=== PATIENT | female | born 1990 | race Caucasian/White ===

== ENCOUNTER 2018-08-15 17:57 | Outpatient (CLI) | payer MEDICAID ==
[~2018-08-15] VITALS: Ht 157.5 cm; Wt 79.3 kg
[2018-08-15 18:29] VITALS: Ht 157.5 cm; Wt 79.3 kg
[2018-08-15] MEDS ORDERED: ACETAMINOPHEN 325 MG TAB PO ONE (18:30)
[2018-08-15] MEDS ORDERED: PREN-93 PO (18:31)
--- NOTE | 2018-08-15 21:06 | TRIAGE ---
OB Triage Datetime Report Generated by CPN: 08/15/2018 21:06 Datetime: 08/15/2018 20:20 Stage of : OB Triage Labor Evaluation Frequency: Irritability Monitor Mode: External Duration (sec)2399: 20-30 Quality: Mild Pattern: Normal: <= 5 Contractions in 10 Minutes Resting Tone [place]: Relaxed Heart Rate FHR Baseline Rate: 150 Monitor Mode: External US FHR Baseline Changes: Return to Previous Baseline Variability: Moderate 6-25 bpm Accelerations: 15X15 Decelerations: None Datetime: 08/15/2018 20:00 Stage of : OB Triage Labor Evaluation Frequency: x1 with irritability Monitor Mode: External Duration (sec)2399: 20-50 Quality: Mild Pattern: Normal: <= 5 Contractions in 10 Minutes Resting Tone [place]: Relaxed Heart Rate FHR Baseline Rate: 150 (Annotations: then baseline change to 160BPM. Will continue to monitor.) Monitor Mode: External US Variability: Moderate 6-25 bpm Accelerations: 15X15 Decelerations: None Datetime: 08/15/2018 19:27 Stage of : OB Triage Temperature Route: Oral Pain Assessment Comments: Pt reports body aches, runny nose, cough, _ feeling warm Datetime: 08/15/2018 18:58 Stage of : OB Triage Maternal Assessment Level of Consciousness: Fully Conscious DTR's/Clonus: DTRs 1+ Headache: Denies Breath Sounds, Left: Clear and Equal Breath Sounds, Right: Clear and Equal Nausea/Vomiting: Denies RUQ Epigastric Pain: Denies Labor Evaluation Frequency: NONE Monitor Mode: External Resting Tone [place]: Relaxed Heart Rate FHR Baseline Rate: 145 Monitor Mode: External US Variability: Moderate 6-25 bpm Accelerations: 15X15 Decelerations: None Pain Assessment Pain Scale: 0 Pain Presence: None/Denies Pain Type: N/A Pain Goal: 3 Vaginal Exam Membrane Status: Intact Datetime: 08/15/2018 18:34 Stage of : OB Triage Datetime: 08/15/2018 18:26 EGA: 35.1 Datetime: 08/15/2018 18:12 Maternal Assessment Level of Consciousness: Fully Conscious DTR's/Clonus: DTRs 1+ Headache: Denies Blurred Vision: No Respiratory Effort: Unlabored Breath Sounds, Left: Clear and Equal Breath Sounds, Right: Clear and Equal Nausea/Vomiting: Denies RUQ Epigastric Pain: Denies Facial Edema: None Labor Evaluation Frequency: NONE Monitor Mode: External Resting Tone [place]: Relaxed Heart Rate FHR Baseline Rate: 145 Monitor Mode: External US Variability: Moderate 6-25 bpm Accelerations: 15X15 Decelerations: None Category: Category I Pain Assessment Pain Scale: 0 Pain Presence: None/Denies Pain Type: N/A Pain Goal: 3 Vaginal Exam Membrane Status: Intact Datetime: 08/15/2018 17:50 Assessment Type: Triage Maternal Assessment Level of Consciousness: Fully Conscious DTR's/Clonus: DTRs 2+; No Clonus Headache: Denies Blurred Vision: No Respiratory Effort: Unlabored; Regular Rhythm; Equal Expansion Breath Sounds, Left: Clear and Equal Breath Sounds, Right: Clear and Equal Nausea/Vomiting: Denies RUQ Epigastric Pain: Denies Lower Extremities Edema: None Degree: None Upper Extremities Edema: None Degree: None Facial Edema: None Fall Risk Assessment History of Falling: (0) No Secondary Diagnosis: (0) No Ambulatory Aid: (0) Bedrest/Nurse Assist IV Therapy: (0) No Gait: (0) Normal/Bedrest/Immobile Mental Status: (0) Oriented to Own Ability Fall Score: 0 Fall Risk Score Definition: No Risk: No action required Datetime: 08/15/2018 17:48 Time of Arrival: 08/15/2018 17:48 Arrived By: Ambulatory Arrived From: Home Chief Complaint: PT CAME IN C/O FLU LIKE S/S Movement: Present Contractions: Denies/Absent Rupture of Membranes: Denies Vaginal Bleeding: None Vaginal Discharge: Denies Recent Sexual Intercouse: Denies Abdominal Trauma: Not Applicable Patient Complaints: Other Additional Patient Complaints: NONE Time Provider Notified: 08/15/2018 18:00 Provider Notified: SANDRA Initial Plan: NST, BPP, TYLENOL PO
--- NOTE | 2018-08-15 23:01 | PN ---
Triage Information Date/Time 08/15/18 Reason for visit: fever , generalized myalgia,diarrhea , coughing Weeks of Gestation 35w1d /Para Diabetes: none Hypertention: none Objective Vital Signs Date Temp Pulse Resp B/P (MAP) Pulse Ox O2 O2 Flow FiO2 Time Delivery Rate 08/15/18 99.6 18:34 Heart Rate Comments 160's CAT I Contractions: None Results/Medications Results 24 hrs Laboratory Tests Test 08/15/18 18:23 Urine Color YELLOW Urine Clarity SLIGHTLY CLOUDY A Urine pH 7.0 Urine Specific [place] 1.012 Urine Ketones NEGATIVE Urine Nitrite NEGATIVE Urine Bilirubin NEGATIVE Urine Urobilinogen NEGATIVE Urine Leukocyte Esterase 3+ H Urine Microscopic RBC 4 Urine Microscopic WBC 8 H Urine Squamous Epithelial Cells MODERATE Urine Bacteria FEW A Urine Hemoglobin NEGATIVE Urine Glucose NEGATIVE Urine Total Protein NEGATIVE Medications tylenol 650mg IV hydration Imaging Results BPP 12/23 JONATHON 18.4 Disposition: Assessment/Plan A IUP 35w1d R/O viral syndrome P to ER ADRIANO MCLAUGHLIN MD Aug 15, 2018 23:01
[2018-08-16] MEDS ORDERED: ACET325T33 PO (13:46)
[2018-08-16] MEDS ORDERED: ONDA4TAB14 PO (13:46)
[2018-08-16] MEDS ORDERED: OSEL75CA23 PO (13:46)
== END 2018-08-15 20:32 | disposition home or self-care (01) ==
LOC: OBT 17:57 → L-D 18:00 → OBT 20:32
PROVIDERS: ATTEND Obstetrics & Gynecology
DX: O26.893 Other specified pregnancy related conditions, third trimester (principal); R50.9 Fever, unspecified; M79.10 Myalgia, unspecified site; R19.7 Diarrhea, unspecified; R05 Cough; Z3A.35 35 weeks gestation of pregnancy
CPT/HCPCS: 76818; 81001; Z7500; Z7610; G0463

== ENCOUNTER 2018-08-16 11:46 | Emergency (ER) | payer MEDICAID ==
[~2018-08-16] VITALS: Ht 160 cm; Wt 81.6 kg
[~2018-08-16 11:46] MED LIST: PREN-93 PO
[2018-08-16 12:01] VITALS: BP 138/70; PULSE 112; RESP 18; Ht 160 cm; Wt 81.6 kg
[2018-08-16] MEDS ORDERED: ACET325T33 PO (13:46)
[2018-08-16] MEDS ORDERED: OSEL75CA23 PO (13:46)
[2018-08-16] MEDS ORDERED: ONDA4TAB14 PO (13:46)
--- NOTE | 2018-08-16 13:51 | ERD ---
ER Documentation Chief Complaint Chief Complaint cough,sore throat x 3 days , 36 weeks preg ,cleared by ob triage last night HPI 27-year-old female presenting with cough and sore throat times 3 days. Patient is 36 weeks . She denies any pelvic pain or vaginal bleeding. Patient states that her symptoms have worsened over the last 2 days. Had tactile fevers at home and has not taken medication today. Denies medical problems. NKDA. Surgical history denies. Up-to-date on vaccinations ROS All systems reviewed and are negative except as per history of present illness. Medications Home Meds Active Scripts Acetaminophen* (Tylenol*) 325 Mg Tablet, 2 TAB PO Q6 PRN for PAIN AND OR ELEVATED TEMP, #20 TAB Prov:SYLVAIN HINTON PA-C 08/16/18 Ondansetron (Ondansetron Odt) 4 Mg Tab.rapdis, 4 MG PO Q6H PRN for NAUSEA AND/OR VOMITING, #10 TAB Prov:SYLVAIN HINTON PA-C 08/16/18 Oseltamivir Phosphate* (Tamiflu*) 75 Mg Capsule, 75 MG PO BID for 5 Days, CAP Prov:SYLVAIN HINTON PA-C 08/16/18 Reported Medications Vit No.124/Iron/FA ( Vitamin Tablet) 1 Each Tablet, 1 EACH PO, TAB 08/15/18 Allergies Allergies: Coded Allergies: No Known Allergy (Unverified , 08/15/18) FmHx Family History: No diabetes, No coronary disease, No other Physical Exam Vitals Vital Signs Date Temp Pulse Resp B/P (MAP) Pulse Ox O2 O2 Flow FiO2 Time Delivery Rate 08/16/18 98.5 112 18 138/70 99 12:01 (92) Physical Exam GENERAL: The patient is well-appearing, well-nourished, in no acute distress HEENT: Atraumatic. Conjunctivae are pink. Pupils equal, round, and reactive to light. There is no scleral icterus. Tympanic membranes clear bilaterally. Oropharynx clear. NECK: C-spine is soft and supple. There is no meningismus. There is no cervical lymphadenopathy. CHEST: Clear to auscultation bilaterally. There are no rales, wheezes or rhonchi. HEART: Regular rate and rhythm. No murmurs, clicks, rubs or gallops. Procedures/MDM ER course: Influenza positive. MDM: 27-year-old female presenting with findings consistent with influenza. I have low suspicion for pneumonia. I have low suspicion for meningitis or sepsis. I have low suspicion for bacterial [employer] infection. Patient is discharged with strict ER precautions and recommended to follow-up with primary care within 1-2 days for close evaluation. All questions answered at discharge Departure Diagnosis: Primary Impression: Influenza Condition: Stable Patient Instructions: Influenza (Adult) Referrals: [facility] YOU HAVE RECEIVED A MEDICAL SCREENING EXAM AND THE RESULTS INDICATE THAT YOU DO NOT HAVE A CONDITION THAT REQUIRES URGENT TREATMENT IN THE EMERGENCY DEPARTMENT. FURTHER EVALUATION AND TREATMENT OF YOUR CONDITION CAN WAIT UNTIL YOU ARE SEEN IN YOUR DOCTORS OFFICE WITHIN THE NEXT 1-2 DAYS. IT IS YOUR RESPONSIBILITY TO MAKE AN APPOINTMENT FOR FOLOW-UP CARE. IF YOU HAVE A PRIMARY DOCTOR --you should call your primary doctor and schedule an appointment IF YOU DO NOT HAVE A PRIMARY DOCTOR YOU CAN CALL OUR PHYSICIAN REFERRAL HOTLINE AT IF YOU CAN NOT AFFORD TO SEE A PHYSICIAN YOU CAN CHOSE FROM THE FOLLOWING [facility] [address] [facility] [address] [facility] [address] [facility] [facility] [address] [facility]. [facility] [address] [facility]. [facility]. [address] Additional Instructions: FOLLOW UP WITH YOUR PRIMARY CARE PHYSICIAN TOMORROW.Return to this facility if you are not improving as expected. SYLVAIN HINTON PA-C Aug 16, 2018 13:51
== END 2018-08-16 13:54 | disposition home or self-care (01) ==
LOC: FTE 11:46
DX: O99.513 Diseases of the respiratory system complicating pregnancy, third trimester (principal); J10.1 Influenza due to other identified influenza virus with other respiratory manifestations; Z3A.36 36 weeks gestation of pregnancy
CPT/HCPCS: 87400; Z7502; 99283

== ENCOUNTER 2018-09-26 21:00 | Inpatient (IN) | payer MEDICAID ==
[~2018-09-26] VITALS: Ht 158.8 cm; Wt 86.6 kg
[~2018-09-26 21:00] MED LIST changes: +ACET325T33 PO; +ONDA4TAB14 PO; +OSEL75CA23 PO
[2018-09-26 22:10] VITALS: BP 127/65; PULSE 81; RESP 20; Ht 158.8 cm; Wt 86.6 kg
[2018-09-26] MEDS ORDERED: LACTATED RINGER'S 1,000 ML IV PRN (22:50)
[2018-09-26] MEDS ORDERED: OXYTOCIN 30 UNITS/LR 500 ML IV SCH ×2 (23:00)
[2018-09-26] MEDS ORDERED: BUTORPHANOL 2 MG INJ IV PRN ×2 (23:00)
[2018-09-26] MEDS ORDERED: LIDOCAINE 1% (MPF) 30 ML INJ INJ PRN (23:00)
[2018-09-26] MEDS ORDERED: OXYTOCIN 30 UNITS/LR 500 ML IV PRN (23:00)
[2018-09-26] MEDS ORDERED: IBUPROFEN 600 MG TAB PO PRN (23:00)
[2018-09-26] MEDS ORDERED: METHYLERGONOVINE 0.2 MG INJ IM PRN (23:00)
[2018-09-26] MEDS ORDERED: CARBOPROST 250 MCG INJ IM PRN (23:00)
[2018-09-26] MEDS ORDERED: MISOPROSTOL 200 MCG TAB PR PRN (23:00)
[2018-09-26] MEDS: LACTATED RINGER'S 1,000 ML IV SCH (23:52)
[2018-09-27] MEDS ORDERED: OXYTOCIN 30 UNITS/LR 500 ML IV SCH ×2 (02:00→19:14)
[2018-09-27] MEDS: LACTATED RINGER'S 1,000 ML IV SCH ×3 (05:02→16:18)
--- NOTE | 2018-09-27 09:57 | PREOPHP ---
DATE OF ADMISSION: 09/26/2018 HISTORY OF PRESENT ILLNESS: Ms. González Brown is a 27-year-old, 3, para 1, EDC 09/18/2018 int rauterine at 41 weeks gestational age, admitted today for post-EDC induction. She denies a ny vaginal bleeding or discharge. Her care took place at [facility] and [facility]. PAST MEDICAL HISTORY: None. MEDICATIONS: vitamins. PAST SURGICAL HISTORY: None. OBSTETRICAL HISTORY: x1 vaginal delivery, x1 missed AB. GYNECOLOGIC HISTORY: 12, regular 3 to 4 days. She denies any sexually transmitted infections. Sexu ally active with 1 partner. SOCIAL HISTORY: She denies any smoking, drugs or alcohol. FAMILY HISTORY: None. REVIEW OF SYSTEMS: All within normal except history of present illness. PHYSICAL EXAMINATION: HEENT: Within normal. LUNGS: CTA bilateral. CARDIOVASCULAR: S1, S2, regular rhythm. ABDOMEN: Gravid, nontender. Negative CVA bilateral. EXTREMITIES: Negative. No calf tenderness. PELVIC: Vaginal exam 2 to 3 cm dilated, 70% effaced, -2 station, intact. heart tracing catego ry 1, toco; regular contractions. ASSESSMENT: Intrauterine at 41 weeks gestational age, currently on Pitocin for post-EDC in duction. PLAN: Continue current management. Anticipate vaginal delivery. Dictated By: GOPAL SMITH/TEJAS Conf#: [id number] DID#: [id number] CC: GOPAL GARCIA MD;*EndCC*
[2018-09-27] MEDS ORDERED: FENTAnyl 2MCG/ML-ROPIV 0.2% 100 ML ONE (15:55)
--- NOTE | 2018-09-27 15:57 | PREAC ---
Date/Time of Note Date/Time of Note DATE: 09/27/18 TIME: 15:56 Anesthesia Eval and Record Evaluation Time Pre-Procedure Interview DATE: 09/27/18 TIME: 15:56 Age 27 Sex female NPO: 8 hrs Preoperative diagnosis iuip at 39 weeks Planned procedure labor epidural Past Medical History Past Medical History: Includes Heme: Anemia Surgery & Anesthesia Issues No known issue Meds Anticoagulation: No Beta Zain within 24 hr: No Reason Beta Zain not given: Pt. not on B-Zain Reported Medications Vit No.124/Iron/FA ( Vitamin Tablet) 1 Each Tablet, 1 EACH PO, TAB 08/15/18 Discontinued Scripts Acetaminophen* (Tylenol*) 325 Mg Tablet, 2 TAB PO Q6 PRN for PAIN AND OR ELEVATED TEMP, #20 TAB Prov:SYLVAIN HINTON PA-C 08/16/18 Ondansetron (Ondansetron Odt) 4 Mg Tab.rapdis, 4 MG PO Q6H PRN for NAUSEA AND/OR VOMITING, #10 TAB Prov:SYLVAIN HINTON PA-C 08/16/18 Oseltamivir Phosphate* (Tamiflu*) 75 Mg Capsule, 75 MG PO BID for 5 Days, CAP Prov:SYLVAIN HINTON PA-C 08/16/18 Current Medications Lactated Ringer's 1,000 ml @ 125 mls/hr Q8H IV Last administered on 09/27/18at 12:48; Admin Dose 125 MLS/HR; Start 09/26/18 at 22:50 Butorphanol Tartrate (Stadol) 1 mg Q2H PRN IV .PAIN SCALE 1-5; Start 09/26/18 at 23:00 Butorphanol Tartrate (Stadol) 2 mg Q2H PRN IV .PAIN SCALE 6-10; Start 09/26/18 at 23:00 Lidocaine (Xylocaine 1% (Mpf)) 30 ml ONCE PRN INJ .EPISIOTOMY; Start 09/26/18 at 23:00 Oxytocin/Lactated Ringer's 500 ml @ 500 mls/hr ONCE POST IV ; Start 09/26/18 at 23:00 Oxytocin/Lactated Ringer's 500 ml @ 125 mls/hr POST IV ; Start 09/26/18 at 23:00 Ibuprofen (Motrin) 600 mg ONCE PRN PO .PAIN 1-5; Start 09/26/18 at 23:00 Lactated Ringer's 1,000 ml @ 2,000 mls/hr Q30M PRN IV .ANESTHESIA; Start 09/26/18 at 22:50 Oxytocin/Lactated Ringer's 500 ml @ 0 mls/hr ONCE PRN IV .VAGINAL BLEEDING; S tart 09/26/18 at 23:00 Methylergonovine Maleate (Methergine) 0.2 mg ONCE PRN IM .VAGINAL BLEEDING; S tart 09/26/18 at 23:00 Carboprost Tromethamine (Hemabate) 250 mcg ONCE PRN IM .VAGINAL BLEEDING; Start 09/26/18 at 23:00 Misoprostol (Cytotec) 1,000 mcg ONCE PRN HI .VAGINAL BLEEDING; Start 09/26/18 at 23:00 Oxytocin/Lactated Ringer's 500 ml @ 0 mls/hr FOR AUGMENTATION IV Last administered on 09/27/18at 02:43; Admin Dose 1 MLS/HR; Start 09/27/18 at 02:00 Meds reviewed: Yes Allergies Coded Allergies: No Known Allergy (Unverified , 09/26/18) Allergies Reviewed: Yes Labs/Studies Labs Reviewed: Reviewed by anesthesiologist Result Diagram: 09/26/18 2230 Laboratory Tests 09/26/18 22:30 Blood Bank Test 09/26/18 22:30 Antibody Screen NEGATIVE Blood Type O POSITIVE Rh Immune Globulin Candidate NO test: Positive Pre-procedure Exam Last vitals Vital Signs Date Temp Pulse Resp B/P (MAP) Pulse Ox O2 O2 Flow FiO2 Time Delivery Rate 09/26/18 98.1 81 20 127/65 Room Air 22:10 (85) Airway: Adequate mouth opening, Adequate thyromental dist Mallampati: Mallampati II Teeth: Normal Lung: Normal Heart: Normal ASA Physical Status ASA physical status: 2 Emergency: None Planned Anesthetic Neuraxial: Epidural Planned Pain Management Parenteral pain med Pre-operative Attestations Prior to commencing anesthesia and surgery, the patient was re-evaluated, there was verification of: *The patient's identity *The results of appropriate recent lab work and preoperative vital signs *The above evaluation not changing prior to induction *Anesthetic plan, risk benefits, alternative and complications discussed with patient/family; questions answered; patient/family understands, accepts and wishes to proceed. HARESH GUSMAN September 27, 2018 15:57
[2018-09-27] MEDS ORDERED: FENTAnyl 2MCG/ML-ROPIV 0.2% 100 ML BAG EPI SCH (16:00)
[2018-09-27] MEDS ORDERED: DIPHENHYDRAMINE 50 MG INJ IV PRN (16:00)
[2018-09-27] MEDS ORDERED: ONDANSETRON 4 MG INJ IV PRN ×2 (16:00→19:30)
[2018-09-27] MEDS ORDERED: NALOXONE (0.4 MG/ML) INJ IV PRN (16:00)
--- NOTE | 2018-09-27 16:58 | PAC ---
Date/Time of Note Date/Time of Note DATE: 09/27/18 TIME: 16:58 Post-Anesthesia Notes Post-Anesthesia Note Last documented vital signs Vital Signs Date Temp Pulse Resp B/P (MAP) Pulse Ox O2 O2 Flow FiO2 Time Delivery Rate 09/27/18 98.1 81 20 127/65 Room Air 1650 (85) Activity: WNL Respiratory function: WNL Cardiovascular function: WNL Mental status: Baseline Pain reasonably controlled: Yes Hydration appropriate: Yes Nausea/Vomiting absent: Yes HARESH GUSMAN September 27, 2018 16:58
--- NOTE | 2018-09-27 19:13 | LDN ---
Date/Time of Note Date/Time of Note DATE: 09/27/18 TIME: 19:12 Delivery Summary Weeks of Gestation 41 Placenta Delivered: Spontaneously Meconium: none Episiotomy: Yes Laceration repair: rmle repair with 2-0 and 3-0 chromic Anesthesia type: Epidural Estimated blood loss: 200 Sponge & Needle done & correct: Yes All needle counts correct: Yes Any foreign bodies felt in the: No Delivery Information Sex Infant Sex: female Apgars 1 Minute: 9 5 Minute: 9 Suctioning Nose & mouth suctioned at louie: No Delee suction performed: No Umbilical Cord Umbilical cord with: 3 Vessels Cord presentations: no nuchal cord Cord Blood was obtained: Yes GOPAL GARCIA MD September 27, 2018 19:13
[2018-09-27] MEDS ORDERED: OXYCODONE/ASPIRIN (4.88/325) TAB PO PRN (19:30)
[2018-09-27] MEDS ORDERED: ACETAMINOPHEN 325 MG TAB PO PRN (19:30)
[2018-09-27] MEDS ORDERED: DIPHENHYDRAMINE 25 MG CAP PO PRN (19:30)
[2018-09-27] MEDS ORDERED: CARBOPROST 250 MCG INJ IM PRN (19:30)
[2018-09-27] MEDS ORDERED: NACL 0.9% 3 ML SYG IV SCH (19:30)
[2018-09-27] MEDS ORDERED: LANOLIN HPA 1 PKT TOP PRN (19:30)
[2018-09-27] MEDS ORDERED: OXYTOCIN 30 UNITS/LR 500 ML IV PRN (19:30)
[2018-09-27] MEDS ORDERED: METHYLERGONOVINE 0.2 MG INJ IM PRN (19:30)
[2018-09-27] MEDS ORDERED: MISOPROSTOL 200 MCG TAB PR PRN (19:30)
[2018-09-27 20:40] VITALS: BP 126/58; PULSE 89; RESP 18
[2018-09-27] MEDS: BENZOCAINE 20% 56 ML SPRAY TOP PRN (21:18)
[2018-09-27] MEDS: WITCH HAZEL/GLYCERIN PAD PR PRN (21:18)
[2018-09-28] MEDS: IBUPROFEN 600 MG TAB PO SCH ×4 (00:39→17:27)
[2018-09-28] MEDS: OXYCODONE/ASPIRIN (4.88/325) TAB PO PRN ×2 (03:15→16:34)
[2018-09-28 03:46] VITALS: BP 125/58; PULSE 73; RESP 18
[2018-09-28 08:15] VITALS: BP 101/57; PULSE 71; RESP 18
[2018-09-28 12:15] VITALS: BP 108/71; PULSE 82; RESP 19
[2018-09-28 16:00] VITALS: BP 110/66; PULSE 86; RESP 19
--- NOTE | 2018-09-28 17:56 | PD.PPDC ---
JOB MOLDER Discharge Instruction Condition [id number] Patient Condition: [id number] Good Diet Scwli2Ag Diet: Amxkz5j Resume Regular Diet Activity/Restrictions Uuflh2Bp Activity: Hibxh2v Normal Activity May Shower [id number] Restrictions: Eltae7w No Exercising No Lifting No Driving No Sexual Activity Nothing in the Vagina No [place] No Tampons, douche Follow-up Follow-up with Physician: 3, Week/Weeks Return to clinic for Ulogl0Nm HAND CANDY DIPPER Instructions: Judih2p Fever greater than 101 Chills Worsening abdominal pain Excessive Vaginal Bleeding More than 2 pads per hour Unable to tolerate diet [id number] OB Instructions: Ibvzt5s Breast Tenderness Depression Blurried Vision Headache [id number] Surgical Instructions: Hrcql3z Incisional Drainage Incisional Redness GOPAL GARCIA MD September 28, 2018 17:56
--- NOTE | 2018-09-28 17:58 | DS ---
Date/Time of Note Date/Time of Note DATE: 09/28/18 TIME: 17:58 Obstetrical Discharge Record Final Diagnosis Final Diagnosis: Term delivered Vaginal Delivery Obstetrical Delivery: Spontaneous, Laceration, Repaired Condition on Discharge Physical Assessment Last Vitals: stable Voiding: Yes Bowel Movement: Yes Breast: Soft, non-tender, Filling Fundus: Firm Abdomen and Incision: soft nt Calf Tenderness: No Patient Condition: Fair GOPAL GARCIA MD September 28, 2018 17:58
[2018-09-28 20:40] VITALS: BP 99/66; PULSE 82; RESP 17
[2018-09-29] MEDS: IBUPROFEN 600 MG TAB PO SCH ×4 (00:21→18:21)
[2018-09-29] MEDS: OXYCODONE/ASPIRIN (4.88/325) TAB PO PRN ×3 (01:31→16:59)
[2018-09-29 04:00] VITALS: BP 85/40; PULSE 72; RESP 19
[2018-09-29 08:00] VITALS: BP 110/69; PULSE 68; RESP 19
[2018-09-29] MEDS: BENZOCAINE 20% 56 ML SPRAY TOP PRN (08:38)
[2018-09-29] MEDS: WITCH HAZEL/GLYCERIN PAD PR PRN (08:38)
[2018-09-29] MEDS ORDERED: MEASLES,MUMPS,RUBELLA VACCINE INJ SC* ONE (09:00)
[2018-09-29 16:00] VITALS: BP 111/66; PULSE 72; RESP 18
[2018-09-29 16:01] VITALS: BP 111/66; PULSE 72; RESP 18
--- NOTE | 2018-09-30 21:11 | DELSUM ---
Delivery Summary A-C Datetime Report Generated by CPN: 09/30/2018 21:11 DELIVERY PERSONNEL Process Development Manager: Ramiro, Micaela MATERNAL INFORMATION Delivery Anesthesia: Epidural Medications in Delivery: oxytocin 30 mu in 500 ml of lr Delivery QBL (ml): 200 Placenta Cultured: No Maternal Complications: None LABOR SUMMARY EDC: 09/18/2018 00:00 No. Babies in Womb: 1 Attempted: No Labor Anesthesia: None LABOR INFORMATION Reason for Induction: Postterm Onset of Labor: 09/27/2018 09:29 Complete Dilatation: 09/27/2018 17:26 Oxytocin: Induction Group B Beta Strep: Negative Antibiotics # of Doses: x0 Steroids Given: None Reason Steroids Not Administered: Not Applicable MEMBRANES Membranes Rupture Method: Artificial Rupture of Membranes: 09/27/2018 18:25 Length of Rupture (hr): 0.30 Amniotic Fluid Color: Clear Amniotic Fluid Amount: Small Amniotic Fluid Odor: None STAGES OF LABOR Stage 1 hr: 7 Stage 1 min: 57 Stage 2 hr: 1 Stage 2 min: 17 Stage 3 hr: 0 Stage 3 min: 3 Total Time in Labor hr: 9 Total Time in Labor min: 17 VAGINAL DELIVERY Episiotomy: Median Laceration Extension: N/A Laceration Type: None Laceration Repair: Not Applicable Initial Vag Sponge Count: 10 Final Vag Sponge Count: 10 Initial Vag Sharps Count: 4 Final Vag Sharps Count: 4 Sponge Count Correct: Yes; Vaginal Sweep Performed Sharps Count Correct: Yes BABY A INFORMATION Delivery Date/Time: 09/27/2018 18:43 Method of Delivery: Vaginal Born in Route : No : N/A Forceps: N/A Vacuum Extraction: N/A Shoulder Dystocia : N/A SHOULDER DYSTOCIA BABY A Delivery Date/Time: 09/27/2018 18:43 PRESENTATION/POSITION BABY A Presentation: Cephalic Cephalic Presentation: Vertex Vertex Position: Left Occipital Anterior Breech Presentation: N/A PLACENTA INFORMATION BABY A Placenta Delivery Time : 09/27/2018 18:46 Placenta Method of Delivery: Spontaneous Placenta Status: Delivered SCORES BABY A Heart Rate 1 min: >100 bpm Resp Effort 1 min: Good Cry Reflex Irritability 1 min: Cough/Sneeze/Pulls Away Muscle Tone 1 min: Active Motion Color 1 min: Body [place], Extremit Blue Resuscitation Effort 1 min: Tactile Stimulation SCORE 1 MIN: 9 Heart Rate 5 min: >100 bpm Resp Effort 5 min: Good Cry Reflex Irritability 5 min: Cough/Sneeze/Pulls Away Muscle Tone 5 min: Active Motion Color 5 min: Body [place], Extremit Blue Resuscitation Effort 5 min: Tactile Stimulation SCORE 5 MIN: 9 INFORMATION BABY A Gestational Age at Delivery: 41.2 Gestational Status: Late Term- 41- 41.6 Weeks Outcome : Liveborn Infant Condition : Stable Infant Sex: Female IDENTIFICATION/MEDS BABY A ID Band Number: [id number] ID Band Location: Right Leg; Left Arm Sensor Applied: Yes Sensor Number: [id number] Sensor Location : Cord Clamp Vitamin K Given : Not Given Erythromycin Given: Not Given WEIGHT/LENGTH BABY A Birthweight (gm): 3425 Weight (lb): 7 Weight (oz): 9 Length (in): 20.00 Length (cm): 50.80 CORD INFORMATION BABY A No. Cord Vessels: 3 Nuchal Cord : N/A Cord Blood Taken: Yes Banking/Donate Info: 0 Suction: Mouth; Nose ASSESSMENT BABY A Complications: None Physical Findings at Delivery: Within Normal Limits Infant Respirations: Appears Normal Radio Program Checker/ALS Called : No Infant Care By: SHELIA GARRETT Transferred To: Remains with Mother
== END 2018-09-29 19:45 | disposition home or self-care (01) | DRG 807 ==
LOC: L-D 22:05 → PP1 09-27 20:44
PROVIDERS: ADMIT Obstetrics & Gynecology; ATTEND Obstetrics & Gynecology
PROC: 10E0XZZ Delivery of Products of Conception, External Approach (ICD-10-PCS; principal; 2018-09-27)
PROC: 0HQ9XZZ Repair Perineum Skin, External Approach (ICD-10-PCS; 2018-09-27)
DX: O48.0 Post-term pregnancy (principal); O70.0 First degree perineal laceration during delivery; Z37.0 Single live birth; Z3A.41 41 weeks gestation of pregnancy
CPT/HCPCS: 62322; 76816; 85025; 85048; 85610; 85730; 86592; 86850; 86900; 86901; 87340; J2590; J3010; J7120